=== PATIENT | male | born 1965 | race Caucasian/White ===

== ENCOUNTER 2025-05-18 00:43 | Day surgery (SDC) | payer OTHER, SELFPAY ==
[2025-05-03 14:53] VITALS: BMI 30.2
--- OUTSIDE RECORDS SUMMARY | 2025-05-18 00:46 | XMS_ITS | Clinical Summary ---
Author Organization [facility] Address [address] [place] [address] Care Team Providers Care Manager Of Project Management Name Role Phone Shorty Modi MD Primary Care Provider [phone]- [phone] Source Comments [facility],non-owned Affiliates and Associated Physician Practices is amultiple site organization consisting of ambulatory clinics and hospital sitesin [place], [place], [place] and [place]. This disclosure is being madepursuant to the Care Everywhere program and may not contain all information available regarding this patient. Last updated 18.[facility] Allergies No known active allergies Immunizations Immunization Administration Dates Next Due INFLUENZA VACCINE, QUADR. (F LUZONE; FLULAVAL; FLUARIX; AFLURIA QUADRIVALENT; 6MO+), 0.5 ML (IIV4) 06/12/2017 TDAP (7yrs+) 06/12/2017 Social History Tobacco Use Types Packs/Day Years Used Date Smoking Tobacco: Never Assessed Sex and Gender Information Value Date Recorded Sex Assigned at Not on file Legal Sex Male 1:30 PM CDT Gender Identity Not on file Sexual Orientation Not on file Plan of Treatment Health Maintenance Due Date Last Done Comments COLOGUARD (AGES 45-75) - COL ON CA SCREENING 1965 COLON MONITORING 1963 COLONOSCOPY - COLON CA SCREENING 1963 CT COLONOGRAPHY - COLON CA SCREENING 1965 Colorectal Cancer Screening 1965 FIT - COLON CA SCREENING 1963 FLEX SIG - COLON CA SCREENING 1963 LIPID TESTING 1963 HIV SCREENING 1978 HEPATITIS C SCREENING 02/18/1981 PNEUMOCOCCAL VACCINE 50+ (1 of 1 - PCV) 2013 ZOSTER VACCINE (1 of 2) 2013 COVID-19 VACCINE (1 - 2023-2 5 season) 2024 DEPRESSION SCREENING 10/13/2024 INFLUENZA VACCINE (#1) 2025 06/12/2017 DTAP/TDAP/TD VACCINES (2 - T d or Tdap) 06/12/2027 06/12/2017 Respiratory Syncytial Virus (RSV) Vaccine Pt: or over 60 yrs (1 - 1-dose 75+ series) 2038 HEPATITIS B VACCINE Aged Out No longe r eligible based on patient's age to complete this topic HIB VACCINE Aged Out No longer eligi ble based on patient's age to complete this topic HPV VACCINE Aged Out No longer eligi ble based on patient's age to complete this topic MENINGOCOCCAL (Group B) VACC INE SHARED DECISION-MAKING Aged Out No longer eligibl e based on patient's age to complete this topic MENINGOCOCCAL GROUPS A/C/Y/W VACCINE Aged Out No longer eligible b ased on patient's age to complete this topic Insurance [facility] Care Teams Manager Of Project Management Relationship Specialty Start Date End Date Shorty Modi MD [address] [place] [id number] PCP - General Family Medicine 06/12/17
--- OUTSIDE RECORDS SUMMARY | 2025-05-18 00:46 | XMS_ITS | Clinical Summary ---
Author Organization [facility] Address [address] [place] [id number] Care Team Providers Care Subsurface Augmentee Operator Name Role Phone Shorty Modi MD Primary Care Provider [phone]- [phone] Allergies No known active allergies Medications cetirizine 10 MG tablet Take 10 mg by mouth daily. Active Active Problems No known active problems Family History Medical History Relation Comments Diabetes Father Cancer Mother breast, colon Relation Status Comments Father Alive Mother Social History Tobacco Use Types Packs/Day Years Used Date Smoking Tobacco: Former Cigarettes Q uit: 1991 Smokeless Tobacco: Current Alcohol Use Standard Drinks/Week Comments No 0 (1 standard drink = 0.6 oz pur e alcohol) quit 2 years ago AUDIT-C Answer Date Recorded Frequency of Alcohol Consumption Never 01/26/2019 Average Number of Drinks Not on file 019 Frequency of Binge Drinking Not on file 01/11 PHQ-2 Answer Date Recorded PHQ-2 Score 0 01/26/2019 Education Answer Date Recorded What is the highest level of school you have completed or the highest degree you have received? High school graduate 01/26/2019 Sex and Gender Information Value Date Recorded Sex Assigned at Male 01/26/2019 4:25 PM CDT Legal Sex Male 1:58 PM CDT Gender Identity Male 01/26/2019 4:25 PM CDT Sexual Orientation Straight 01/26/2019 4: 25 PM CDT Last Filed Vital Signs Vital Sign Reading Time Taken Comments Blood Pressure 106/70 01/26/2019 4:17 PM CDT Pulse 72 01/26/2019 4:17 PM CDT Temperature 36.7 C (98.1 F) 01/26/2019 4:17 PM CDT Respiratory Rate 16 01/26/2019 4:17 PM CDT Oxygen Saturation 97% 01/26/2019 4:17 PM CDT Inhaled Oxygen Concentration - - Weight 97.5 kg (215 lb) 01/26/2019 4:17 PM CDT Height 180.3 cm (5' 11) 01/26/2019 4:17 PM CDT Body Mass Index 29.99 01/26/2019 4:17 PM CDT Plan of Treatment Health Maintenance Due Date Last Done Comments Colorectal Cancer Screening Colonoscopy (10 Years) 1963 Annual Physical 1966 Hepatitis C 1981 Pneumococcal Vaccine: 50+ Ye ars (1 of 1 - PCV) 2013 Zoster Vaccines (1 of 2) 2013 COVID-19 Vaccine (1 - 2023-2 5 season) 2024 DTaP, Tdap and Td Vaccines ( 2 - Td or Tdap) 06/12/2027 06/12/2017 RSV Immunization or 60+ Years (1 - 1-dose 75+ series) 2038 Meningococcal B Vaccine Aged Out No l onger eligible based on patient's age to complete this topic Meningococcal Vaccine Aged Out No miriam shailesh eligible based on patient's age to complete this topic RSV Immunizations Under 20 Months Aged Out No longer eligible based on patient's age to complete this topic Insurance Care Teams Subsurface Augmentee Operator Relationship Specialty Start Date End Date Shorty Modi MD PCP - General FAMILY PRACTICE 01/26/19
[2025-05-18 07:17] VITALS: BP 112/75; PULSE 64; RESP 18; TEMP 36.1; O2SAT 98
--- NOTE | 2025-05-18 07:17 | P.PNAN_ITS ---
Anes - Initial Pre Proc Eval Procedure: Operation Date: 05/18/25 08:15 Proposed Procedures p Screening Colonoscopy - Nasim Beard MD Date/Time: 05/18/25 07:17 Surgeon: Nasim Beard MD Pre Op Diagnosis: Encounter for screening for malignant neoplasm of Patient Data Age: 60 Gender: M Height: 1.78 m Weight: 95.5 kg Allergies Allergy/AdvReac Type Severity Reaction Status Date / Time No Known Allergies Allergy Verified 05/18/25 07:16 Home Medications ?Medication ?Instructions ?Recorded ?Confirmed ?Type cetirizine 10 mg tablet (Zyrtec) 10 mg PO DAILY PRN al lergy symptoms 06/27/22 05/18/25 History multivitamin 1 tablet PO DAILY 06/27/22 0 05/18/25 History sertraline 50 mg tablet (Zoloft) 25 mg (1/2 x 50 mg) P O .q hs #90 08/30/24 05/18/25 Rx tabs atorvastatin 10 mg tablet 10 mg PO QHS #90 tabs 05/18/25 Rx Patient hx anesthesia problems: none Family hx anesthesia problems: none Results Review: All pre-operative results and documents have been reviewed as part of the pre- operative evaluation. [facility] Past Medical History Medical History (Updated 05/17/25 @ 14:52 by Beni Cr DO) Mixed hyperlipidemia Asthma Acute appendicitis Family history of unspecified malignant neoplasm Allergic rhinitis, cause unspecified Acute stress reaction Surgical History Surgical History (Updated 05/17/25 @ 14:52 by Beni Cr DO) History of appendectomy Family History Family History Mother Carcinoma of colon Family history of malignant neoplasm of breast in first degree relative Social History Social History Smoking packs per day: 1 Smoking cigarettes per day: 20.0 Years smoked: 15 Smoking pack-years: 15.00 Smoking status: Former smoker Tobacco type: cigarettes Alcohol intake: current Lack of Transportation: No Lack of Food: Never True Current Housing: I Have Housing Concerned About Future Housing: No Difficulty Paying Gas/Electric Bills: No Difficulty Paying for Meds: No Currently Unemployed: No Education: High School Diploma/GED Difficulty w/ Childcare or Family Care: No Living arrangements: with family Herlinda Kamara Final PreProcedure Day of Procedure 05/18/25 07:17 Patient weight: overweight Heart: regular rate and rhythm Lungs: clear to auscultation Airway: Mallampati scale class II Neurological: alert and oriented Last oral intake: >/= 8 hours ASA classification: II Emergent: no Anesthetic plan: proceed Anesthesia type and monitoring: general GIVS and standard monitoring Results Review: All pre-operative results and documents have been reviewed as part of the pre- operative evaluation. Informed Consent: The patient's anesthetic plan and its attendant risks and benefits were discussed with the patient/family/POA. Questions were solicited and answers provided to the satisfaction of the patient/family/POA.
--- NOTE | 2025-05-18 07:19 | SUR.PREOP ---
Spoke with patient regarding DNR. Patient requests to remain a full code for this procedure. Code status form signed at bedside with patient.
[2025-05-18] MEDS: LACTATED RINGERS 1,000 ML 150 ML IV CONT (07:28)
--- NOTE | 2025-05-18 07:57 | PM.HPGS ---
History of Present Illness History of Present Illness Consent: Risks, benefits, and alternatives have been discussed and questions answered. Patient agrees to proceed with procedure. Chief complaint: Encounter for screening for malignant neoplasm of Narrative: Andrei Whaley is a 60 year old male here for screening colonoscopy, last one more than 10 years ago Review of Systems Review of Systems: All systems reviewed & are unremarkable except as noted in HPI and below PMFSH Past Medical History Medical History (Updated 05/17/25 @ 14:52 by Beni Cr DO) Mixed hyperlipidemia Asthma Acute appendicitis Family history of unspecified malignant neoplasm Allergic rhinitis, cause unspecified Acute stress reaction Surgical History Surgical History (Updated 05/17/25 @ 14:52 by Beni Cr DO) History of appendectomy Family History Family History Mother Carcinoma of colon Family history of malignant neoplasm of breast in first degree relative Social History Social History Smoking packs per day: 1 Smoking cigarettes per day: 20.0 Years smoked: 15 Smoking pack-years: 15.00 Smoking status: Former smoker Tobacco type: cigarettes Alcohol intake: current Lack of Transportation: No Lack of Food: Never True Current Housing: I Have Housing Concerned About Future Housing: No Difficulty Paying Gas/Electric Bills: No Difficulty Paying for Meds: No Currently Unemployed: No Education: High School Diploma/GED Difficulty w/ Childcare or Family Care: No Meds Home Medications and Allergies Home Medications ?Medication ?Instructions ?Recorded ?Confirmed ?Type cetirizine 10 mg tablet (Zyrtec) 10 mg PO DAILY PRN allergy symptoms 06/27/22 05/18/25 History multivitamin 1 tablet PO DAILY 06/27/22 05/18/25 History sertraline 50 mg tablet (Zoloft) 25 mg (1/2 x 50 mg) PO .q hs #90 08/30/24 05/18/25 Rx tabs atorvastatin 10 mg tablet 10 mg PO QHS #90 tabs 03/09/25 05/18/25 Rx Allergies Allergy/AdvReac Type Severity Reaction Status Date / Time No Known Allergies Allergy Verified 05/18/25 07:16 Vital Signs Vital Signs - 24 hr 05/18/25 07:17 Temperature 97 F L Pulse Rate 64 Respiratory Rate 18 Blood Pressure 112/75 Pulse Oximetry 98 Oxygen Delivery Room Air Exam Const: General: comfortable and no acute distress HENMT: Face/Nose/Sinus: Normal nares present Eyes: General: appearance normal, both eyes and all related structures Neck: Neck: no JVD Resp: Auscultation: clear to auscultation bilaterally Cardio: Rate: regular rate Rhythm: regular rhythm GI: Inspection: non-distended GI Palp: Yes Soft to palpation Skin: General skin exam: normal color Neuro: General: gait normal Speech: normal speech Extrem: General: normal to inspection Psych: Mental Status: mental status grossly normal Assessment and Plan Assessment and plan (1) Colon cancer screening: Code(s): Z12.11 - Encounter for screening for malignant neoplasm of colon Status: Acute Assessment and Plan: colonoscopy
--- NOTE | 2025-05-18 08:16 | S_PTH ---
PATIENT: Andrei Whaley LOC: [facility]#:[id number] AGE/SX: 60/M ROOM: RE05/18/[address]: Nasim Beard MD : 1965 BED: DIS: 05/18/2025 SPEC #: [id number] RECD: 05/18/25 09:01 STATUS: LASHAWN RE #: [id number] ORALIA: 05/18/25 08:[address]: Nasim Beard DEPT: [facility] Surgical RECD BY: Lorena Montoya ENTERED: 05/18/25 09:01 SP TYPE: Surgical OTHR DR: Shorty Modi MD Tissues: A - Colon Polypectomy Procedures: Hematoxylin and Eosin Stain Gross and Microscopic Level 4
[2025-05-18 08:19] VITALS: BP 105/60; PULSE 72; RESP 16; O2SAT 96
[2025-05-18 08:29] VITALS: BP 115/65; PULSE 73; RESP 20; O2SAT 98
[2025-05-18 08:39] VITALS: BP 134/86; PULSE 68; RESP 21; O2SAT 97
== END 2025-05-18 08:47 | disposition home or self-care (01) ==
PROVIDERS: PCP Family Medicine; Referring Provider Family Medicine; Visit Provider Internal Medicine Gastroenterology
PROC: 0DJD8ZZ Inspection of Lower Intestinal Tract, Via Natural or Artificial Opening Endoscopic (ICD-10-PCS; CPT 45378; principal; 2025-05-18 08:15)
DX: Z12.11 Encounter for screening for malignant neoplasm of colon (principal); K63.5 Polyp of colon; K57.30 Diverticulosis of large intestine without perforation or abscess without bleeding; K64.8 Other hemorrhoids; Z87.891 Personal history of nicotine dependence
CPT/HCPCS: 45385; 88305; J7120